=== PATIENT | female | born 1985 | race Caucasian/White ===

== ENCOUNTER 2016-07-08 05:39 | Day surgery (SDC) | payer OTHER ==
[~2016-07-08] VITALS: Ht 160 cm; Wt 78.8 kg
[2016-07-08] VITALS (13 sets, daily range): BP systolic 105–123; BP diastolic 59–81; PULSE 76–97; RESP 10–23; O2SAT 92–100
[~2016-07-08 05:39] MED LIST: IBUP800T28 PO; OXYC1TAB24 PO; SERT20OR6 PO
[2016-07-08] MEDS ORDERED: Ondansetron 2 mg/mL 2 mL Inj ONE (05:40)
[2016-07-08] MEDS ORDERED: fentaNYL-PF 50 mCg/mL 2 mL Inj ONE (05:40)
[2016-07-08] MEDS ORDERED: Ketamine 10 mg/mL 20 mL Inj ONE (05:40)
[2016-07-08] MEDS ORDERED: Dexamethasone 4 mg/mL Inj ONE (05:40)
[2016-07-08] MEDS: Lactated Ringer's 1,000 ML IV SCH ×2 (05:43→07:37)
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
[2016-07-08] MEDS ORDERED: Bupivacaine-MPF 0.5% W/EPI 30 mL Inj INFILTRATE ONE (08:34)
[2016-07-08] MEDS ORDERED: Lactated Ringer's 1,000 ML IV SCH (08:53)
[2016-07-08] MEDS ORDERED: Lactated Ringer's 500 ML IV PRN (08:53)
[2016-07-08] MEDS ORDERED: EPHEDrine Sulfate 50 mg/mL Inj IVPUSH PRN (08:55)
[2016-07-08] MEDS ORDERED: HYDROmorphone 1 mg/mL Inj IVPUSH PRN ×2 (08:55→09:35)
[2016-07-08] MEDS ORDERED: Ondansetron 2 mg/mL 2 mL Inj IVPUSH PRN ×2 (08:55→09:35)
[2016-07-08] MEDS ORDERED: MetoCLOpramide 5 mg/mL 2 mL Inj IVPUSH PRN ×2 (08:55→09:35)
[2016-07-08] MEDS ORDERED: Dexamethasone 4 mg/mL Inj IVPUSH PRN (08:55)
[2016-07-08] MEDS ORDERED: Phenylephrine 10,000 mCg/mL Inj IVPUSH PRN (08:55)
[2016-07-08] MEDS ORDERED: Lactated Ringer's 1,000 ML IV ONE (09:00)
[2016-07-08] MEDS ORDERED: oxyCODONE-Acetamin 5-325 mg Tablet PO PRN (09:35)
[2016-07-08] MEDS ORDERED: Ketorolac 15 mg/mL Inj IVPUSH PRN (09:35)
[2016-07-08] MEDS ORDERED: diphenhydrAMINE 25 mg Capsule PO PRN (09:35)
--- NOTE | 2016-07-08 09:38 | PCM.DIGYN ---
Surgical Discharge Instruction Dates of Hospitalization Date of Hospital Admission 07/08/16 Providers Admitting Physician: Primary Care Physician: Isak Culp PA-C Attending Physician: Charisse Allison MD Diagnosis at Time of Discharge Diagnosis at time of discharge Endometriosis, vulvar condyloma Problems: Diet Discharge Diet: No restrictions Activity Discharge Activity-General: Try not to overdue, Be up and about, Balance rest and activity, No lifting >15 pounds for 2 weeks, No driving while taking narcotic Dressing and Incisional Care Dressing Care: Keep dressing clean, dry & intact Hygiene: May shower, NO bathtub, hot tub or whirlpool Additional Instructions Discharge Instructions You have had an uncomplicated laparoscopy and removal of vulvar condyloma. There was minimal endometriosis noted but your right ovary looked slightly abnormal and was removed. Please call with any increasing pain, temperature greater than 100.5, heavy vaginal bleeding. Increased vaginal discharge can be normal after surgery. I have given you a prescription for flagyl in the event you notice increased vaginal fishy odor or discharge. Please avoid driving on narcotics. Follow Up Plan Follow-up Provider (F9): Charisse Allison MD Follow-up appointment: Weeks (2) Call your provider for: Fever, Chills, Shortness of breath, Heavy vaginal bleeding, Wound redness, Increasing pain Charisse Allison MD Jul 08, 2016 09:38
[2016-07-08] MEDS: fentaNYL-PF 50 mCg/mL 2 mL Inj IVPUSH PRN ×3 (09:45→09:58)
--- NOTE | 2016-07-08 10:38 | OP ---
[address] [address] OPERATIVE REPORT PATIENT: MUSTAPHA PAINTING : 1985 MR#: [id number] ADMIT: 07/08/2016 JOB ID: [id number] DATE OF SURGERY: 07/08/2016 PREOPERATIVE DIAGNOSIS(ES): 1. Endometriosis. 2. Human papillomavirus condyloma. POSTOPERATIVE DIAGNOSIS(ES): 1. Endometriosis. 2. Human papillomavirus condyloma. PROCEDURE PERFORMED: 1. Diagnostic laparoscopy. 2. Cauterization of endometriosis. 3. Right oophorectomy. 4. Excision of right vulvar condyloma. SURGEON: Charisse Allison MD. SHIFT PRODUCTION ASSOCIATE: Prashant Younger MD, who was necessary for retraction and completion of procedure. ANESTHESIA: General endotracheal anesthesia. ESTIMATED BLOOD LOSS: 5 cc. FLUID REPLACEMENT: 1300 cc of crystalloid. URINE OUTPUT: She was straight catheterized clear yellow urine at the start of the procedure. FINDINGS: Postsurgical changes from her prior hysterectomy. Minimal amount of endometriosis along the vesicouterine peritoneum. Normal appearing left ovary. Right ovary with abnormal discoloration, possible early endometrioma formation. She also had a small amount of endometriosis along the right internal iliac artery that was not cauterized. She had three vulvar condylomata located at 10 o'clock along the right labia majora. COMPLICATIONS: None apparent. INDICATIONS: This is a 30-year-old female who presented to our clinic for treatment of endometriosis. She had previously undergone a total laparoscopic hysterectomy with bilateral salpingectomy a year and a half prior with Dr. Hernandez. At the time of that surgery she was diagnosed with endometriosis, and she had initially gotten good pain relief following this. However, her pain had been worsening and she wanted further treatment. She has failed NSAIDs and oral contraceptive pills. At her first visit she elected for a trial of Lupron therapy. She did one month of this and then discontinued prior to seeing full effect due to the side effects related to this and requested a laparoscopy with cauterization of her endometriosis. Risks, benefits and alternatives were discussed with her prior to the procedure including bleeding, infection, damage to surrounding organs, as well as inadequate pain relief. She opted to proceed with this, and was also consented for a unilateral oophorectomy as needed but did not want removal of both ovaries, as she was not ready to enter surgical menopause. She also requested removal of her vulvar condylomata along the right labia majora. DESCRIPTION OF PROCEDURE: The patient was admitted on July 08 to undergo the above-stated procedures. She was brought to the operating room, where general endotracheal anesthesia was administered. She was prepped and draped in the usual sterile fashion and placed in dorsal lithotomy positioning. She was straight catheterized at the start of the procedure. Then, 5 cc of local anesthetic was placed infraumbilically along the incision of her previous port site. The Veress needle was then inserted through the midline of the umbilicus and a saline drop test confirmed appropriate placement. Her abdomen was then insufflated with appropriately rising CO2 pressures. Next, a 5 mm incision was made infraumbilically along the previous incision site and under direct visualization the port was then placed. Appropriate laparoscopic placement was confirmed. She was placed in Trendelenburg positioning and a brief survey of the abdomen revealed minimal endometriosis and normal postsurgical changes following her total laparoscopic hysterectomy. Next, a 5 mm left lower quadrant port was then placed after injection with local anesthetic. A 5 mm incision was made and the trocar was introduced under direct visualization. The same process was completed in the right lower quadrant. After all ports were placed, a survey of the abdomen revealed a normal-appearing left ovary with red discoloration at one end which was thought to possibly be a small early endometrioma. She also had a small amount of endometriosis along the left vesicouterine fold and along the right internal iliac artery. Thunderbeat device was then placed and the abnormal appearing right ovary was serially clamped and cauterized until it was free from the IP ligament, placed in an EndoCatch bag after the right lower quadrant port site was extended to allow a 10 mm trocar and then removed from the abdomen. This was sent to Pathology. The right IP ligament was noted to be hemostatic. Next, monopolar cautery was brought in and cauterization of the endometriotic implant along the left vesicouterine peritoneum was then cauterized, as well as a second cauterization of possible endometriosis along the right posterior cul-de-sac peritoneum near the utero-ovarian pedicles from her previous hysterectomy. There was noted to be two small endometriosis implants that traversed along the right internal iliac artery but these were left and not cauterized over concern of damage to major blood vessels in risk and benefit analysis. After this, the cul-de-sac was irrigated with normal saline and good hemostasis was confirmed. The Davion-Sarah Beth device was placed in the right lower quadrant port and fascial closure was then completed with 0 Vicryl suture. The CO2 was then released from the abdomen and the trocars were removed after giving the patient two deep breaths with anesthesia. The skin was then closed with 4-0 Monocryl in a subcuticular fashion. Next, attention was then turned to the right vulvar condyloma. She was noted to have three small condylomata located at 10 o'clock on her right labia majora. Using an 11 blade, an elliptical incision was made around these three condylomata and this piece of tissue was removed sharply. The defect was then reapproximated with four interrupted sutures of 4-0 Vicryl. Good hemostasis was noted following this. Bismuth-impregnated gauze was placed on top of this. The patient tolerated this procedure well. Recovered in PACU. All sponge, needle and instrument counts were correct at the completion of the procedure. ALON
--- NOTE | 2016-07-08 13:35 | PCM.ANEP2 ---
Post Anesthesia Evaluation ASA/CMS Post Anesthesia VS in Patient's Normal Range?: Yes Resp Stable; Airway Patent?: Yes CV Function & Hydration Stable: Yes Mental Status Recovered?: Yes Pain control Satisfactory?: Yes N/V Control Satisfactory?: Yes Oren Kamara MD Jul 08, 2016 13:35
--- NOTE | 2016-07-08 13:35 | PCM.ANEP1 ---
Post Anesthesia Phase 1 PACU Phase 1 Assessment Vital Signs Vital Signs Date Time Temp Pulse Resp B/P Pulse Ox O2 Delivery O2 Flow Rate FiO2 07/08/16 12:29 84 18 105/75 96 Room Air 07/08/16 10:56 88 18 107/73 95 07/08/16 10:11 77 16 111/60 100 Room Air 07/08/16 10:05 76 10 111/61 98 Nasal Cannula 2 07/08/16 10:02 76 13 108/59 96 Nasal Cannula 2 07/08/16 09:55 36.6 83 18 112/62 96 Nasal Cannula 2 07/08/16 09:51 88 20 112/62 92 Nasal Cannula 2 07/08/16 09:40 82 18 116/72 98 Nasal Cannula 2 07/08/16 09:30 87 19 115/67 92 Nasal Cannula 2 07/08/16 09:25 97 23 115/75 99 Simple Mask 8 07/08/16 09:20 97 22 123/66 95 Simple Mask 8 07/08/16 09:17 36.6 96 23 121/81 95 Simple Mask 8 07/08/16 06:05 36.7 80 18 112/69 97 Room Air Anesthetic Administered: GA Level of Alertness: Awake, talking LOWERY's with Equal Strength: Yes Pain: No Nausea or Vomiting: No Oxygen Delivery: Simple Mask Lungs: Clear to Auscultation, Normal Air Movement Dermatome Level: Full Sensation Oren Kamara MD Jul 08, 2016 13:35
--- NOTE | 2016-07-12 11:40 | PATH ---
SURGICAL PATHOLOGY Attending Physician:Charisse Allison, CASE STATUS: Signed Out PATIENT NAME: MUSTAPHA PAINTING PID: [id number] : 1985 DATE COLLECTED:07/08/2016 15:39 SPECIMEN: 1: Ovary +/- tube, non-tumor 2: Vulva, Biopsy CLINICAL HISTORY: A: RIGHT OVARY B: VULVAR CONDYLOMA FINAL DIAGNOSIS: 1.RIGHT OVARY: OVARY WITH CORPUS LUTEUM. NO PATHOLOGIC ABNORMALITIES. 2.VULVAR CONDYLOMA: FLAT CONDYLOMA. NEGATIVE FOR HIGH-GRADE DYSPLASIA. ICD10 CODE A63.0 GROSS DESCRIPTION: The specimens are received in formalin, labeled with the patient's name, and sublabeled as the following: (1) right ovary; (2) vulvar condyloma. (1) The specimen consists of an ovary (3.8 x 2.5 x 1.4 cm). The serosa is balbuena-mojica smooth shiny and flat. The parenchyma is monreal-mojica and predominantly consists of a corpus luteum. No nodules, masses or lesions are identified. Section code: (1A) ovary, serially sectioned, commissary representative. (2) The specimen consists of a piece of hairbearing mojica-pink skin (1.0 x 0.7 x 0.2 cm) containing multiple pale white rubbery papules (each approximately 0.2 x 0.2 x 0.2 cm). Ink code: black-resection margin. Section code: (2A) skin, serially sectioned. Specimen entirely submitted. 07/09/16 MICRO DESCRIPTION: See diagnosis. ICD-9 CODES: CPT CODES: 1: 45766 2: 08715 Electronically Signed Out Wanda Butler MD [facility] [address], [place] [address] Technical component performed at [facility], [facility] [address], [place], [address]
== END 2016-07-08 23:59 | disposition home or self-care (01) ==
LOC: SAS 05:39
PROVIDERS: ATTEND Obstetrics & Gynecology
DX: N83.11 Corpus luteum cyst of right ovary (principal); N80.3 Endometriosis of pelvic peritoneum; A63.0 Anogenital (venereal) warts; Z90.710 Acquired absence of both cervix and uterus; Z90.79 Acquired absence of other genital organ(s)
CPT/HCPCS: 17000; 17003; 58661; 58662; J1100; J1885; J2250; J2405; J7120